=== PATIENT | male | born 1980 | race American Indian/Alaskan Native ===

== ENCOUNTER 2018-04-06 10:27 | Emergency (ER) | payer OTHER ==
[2018-04-06 10:45] VITALS: BP 135/82
[2018-04-06] MEDS ORDERED: FLEXERIL PO ONE (11:32)
[2018-04-06] MEDS ORDERED: TORADOL IM ONE (11:32)
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
--- NOTE | 2018-04-06 12:47 | Cat Scan Report ---
FINAL REPORT EXAM: CT HEAD/BRAIN WO CON HISTORY: head injury TECHNIQUE: CT examination of the head without IV contrast PRIORS: None. FINDINGS: Small polyp or retention cyst medial wall right maxillary sinus. Scattered slight mucosal thickening ethmoid sinuses. No acute air-fluid level visualized in the included air-filled sinuses. Bone windows demonstrate no acute fracture. The brain is without mass, mass effect, hemorrhage, or acute infarct. There is no extra-axial intracranial bleed, brain bleed, or midline shift. The ventricles and sulci are age-appropriate. IMPRESSION: No acute CVA, intracranial bleed, or brain mass
--- NOTE | 2018-04-06 13:08 | Cat Scan Report ---
FINAL REPORT EXAM: CT CERVICAL SPINE WO CON HISTORY: neck pain TECHNIQUE: CT examination of the cervical spine without IV contrast PRIORS: None. FINDINGS: There is no compression fracture or spondylolisthesis. No significant degenerative change is present. The visualized prevertebral soft tissues are negative. No definite disc narrowing. No definite evidence of neural foraminal stenosis. IMPRESSION: No acute skeletal pathology in the cervical spine
== END 2018-04-06 13:24 | disposition home or self-care (01) ==
LOC: ED 10:27
DX: S16.1XXA Strain of muscle, fascia and tendon at neck level, initial encounter (principal); R11.2 Nausea with vomiting, unspecified; F17.200 Nicotine dependence, unspecified, uncomplicated; X58.XXXA Exposure to other specified factors, initial encounter; Y93.89 Activity, other specified; Y92.89 Other specified places as the place of occurrence of the external cause; Y99.8 Other external cause status
CPT/HCPCS: 70450; 72125; 96372; 99283; J1885